=== PATIENT | female | born 2000 | race Two or more races ===

== ENCOUNTER → 2023-07-29 | Outpatient (CLI) | payer SELFPAY ==
[2023-07-29 14:17] LABS: HEMATOCRIT 31.5 % (36.0-47.0); HEMOGLOBIN 9.2 g/dl (12.0-15.5); MEAN CORPUSCULAR HEMOGLOBIN 22.4 pg (27.0-33.0); MEAN CORPUSCULAR HGB CONC 29.2 g/dl (32.0-36.5); MEAN CORPUSCULAR VOLUME 76.6 fl (80.0-96.0); PLATELET COUNT, AUTOMATED 117 10^3/uL (150-450); RED BLOOD COUNT 4.11 10^6/uL (4.00-5.40); WHITE BLOOD COUNT 6.4 10^3/uL (4.0-10.0)
[2023-07-29 14:25] LABS: GLUCOSE CHALLENGE TEST 1 HOUR 104 MG/DL (LESS THAN 140)
[2023-07-29 14:55] LABS: HIV 1&2 SCREEN NEGATIVE (NEGATIVE)
[2023-07-29 15:03] LABS: HEPATITIS C VIRUS ABY INDEX 0.04 INDEX (<0.8)
[2023-07-29 15:57] LABS: GC DNA AMPLIFICATION NEGATIVE (NEGATIVE)
== END ==
LOC: M PLALAB 08:13
PROVIDERS: ATTEND Advanced Practice Midwife
DX: Z34.83 Encounter for supervision of other normal pregnancy, third trimester (principal); Z3A.00 Weeks of gestation of pregnancy not specified

== ENCOUNTER → 2023-07-29 | Outpatient (CLI) | payer SELFPAY | LOC: M WHC 07:34 | PROVIDERS: ATTEND Advanced Practice Midwife | DX: Z34.83 Encounter for supervision of other normal pregnancy, third trimester (principal) ==

== ENCOUNTER 2023-08-13 06:40 | Inpatient (IN) | payer MEDICAID, SELFPAY ==
[2023-08-13] VITALS (8 sets, daily range): BP systolic 114–139; BP diastolic 73–87; O2SAT 100
[~2023-08-13] VITALS: Ht 154.9 cm; Wt 61.0 kg
[2023-08-13] MEDS ORDERED: OXYTOCIN 30UNITS IN 0.9% NaCl 500ML IV BAG As Ordered ONE (06:51)
[2023-08-13 07:03] LABS: CORD GAS ABE V -6.2; CORD GAS HCO3 V 23.3 MMOL/L; CORD GAS O2 SAT V 21.4 %; CORD GAS PCO2 V 62.9 mmHg; CORD GAS PH V 7.187 UNITS; CORD GAS PO2 V 12.8 mmHg; CORD GAS SBC V 17.7 MMOL/L; CORD GAS TCO2 V 25.3 MMOL/L
[2023-08-13 07:06] LABS: CORD GAS ABE A -9.7; CORD GAS HCO3 A 20.2 MMOL/L; CORD GAS O2 SAT A 56.6 %; CORD GAS PCO2 A 60.4 mmHg; CORD GAS PH A 7.143 UNITS; CORD GAS PO2 A 26.1 mmHg; CORD GAS TCO2 A 22.1 MMOL/L
[2023-08-13] MEDS ORDERED: OXYTOCIN DRIP 30 UNITS in IV 1 EA IV PRN ×4 (07:20)
[2023-08-13] MEDS ORDERED: ACETAMINOPHEN TAB 650MG DOSE (2X325MG) PO PRN (07:35)
[2023-08-13] MEDS ORDERED: IBUPROFEN 600MG TAB PO PRN (07:35)
[2023-08-13] MEDS ORDERED: METHYLERGONOVINE MALEATE 0.2 MG TAB PO PRN (07:35)
[2023-08-13] MEDS ORDERED: DOCUSATE SODIUM 100MG CAPSULE PO PRN (07:35)
[2023-08-13] MEDS ORDERED: RHOGAM 300MCG (1500IU) INJ IM SCH (07:35)
[2023-08-13] MEDS ORDERED: IBUPROFEN 800 MG TAB PO PRN (07:35)
[2023-08-13] MEDS ORDERED: ACETAMINOPHEN 500 MG TAB PO PRN (07:35)
[2023-08-13] MEDS ORDERED: DIBUCAINE 1% OINTMENT 30GM TOP PRN (07:35)
[2023-08-13] MEDS ORDERED: OXYTOCIN DRIP 30 UNITS in IV 1 EA IV SCH (08:00)
[2023-08-13 08:06] LABS: HEMATOCRIT 28.8 % (36.0-47.0); HEMOGLOBIN 8.3 g/dl (12.0-15.5); MEAN CORPUSCULAR HEMOGLOBIN 21.4 pg (27.0-33.0); MEAN CORPUSCULAR HGB CONC 28.8 g/dl (32.0-36.5); MEAN CORPUSCULAR VOLUME 74.4 fl (80.0-96.0); PLATELET COUNT, AUTOMATED 115 10^3/uL (150-450); RED BLOOD COUNT 3.87 10^6/uL (4.00-5.40); WHITE BLOOD COUNT 10.1 10^3/uL (4.0-10.0)
[2023-08-13 09:46] LABS: AMPHETAMINES URINE REFLEX NEGATIVE (NEGATIVE); BARBITURATES URINE REFLEX NEGATIVE (NEGATIVE); BENZODIAZEPINES URINE REFLEX NEGATIVE (NEGATIVE); CANNABINOIDS URINE REFLEX NEGATIVE (NEGATIVE); COCAINE METABOLITE URINE REFLE NEGATIVE (NEGATIVE); METHADONE URINE REFLEX NEGATIVE (NEGATIVE); OPIATES URINE REFLEX NEGATIVE (NEGATIVE); PHENCYCLIDINE URINE REFLEX NEGATIVE (NEGATIVE)
[2023-08-13] MEDS: PRENATAL VITAMINS CHEWABLE TABLET PO SCH (10:04)
[2023-08-13] MEDS: METHYLERGONOVINE MALEATE 0.2 MG TAB PO SCH ×4 (12:08→23:28)
[2023-08-14] MEDS: METHYLERGONOVINE MALEATE 0.2 MG TAB PO SCH (03:35)
[2023-08-14 06:00] VITALS: BP 113/65; O2SAT 98
[2023-08-14] MEDS: PRENATAL VITAMINS CHEWABLE TABLET PO SCH (08:38)
[2023-08-14] MEDS ORDERED: medroxyPROGESTERone ACET IM SUSP 150 MG/ML VIAL IM ONE (14:10)
[2023-08-15] MEDS ORDERED: MEASLES,MUMPS,RUBELLA VACCINE INJ (MMR-II) SC.IMMUN ONE (09:00)
== END 2023-08-14 15:00 | disposition home or self-care (01) | DRG 560 ==
LOC: M LDI 06:40 → M OBS 09:25
PROVIDERS: ADMIT Advanced Practice Midwife; ATTEND Advanced Practice Midwife
PROC: 10E0XZZ Delivery of Products of Conception, External Approach (ICD-10-PCS; principal; 2023-08-13)
DX: O45.8X3 Other premature separation of placenta, third trimester (principal); O60.14X0 Preterm labor third trimester with preterm delivery third trimester, not applicable or unspecified; Z37.0 Single live birth; Z3A.36 36 weeks gestation of pregnancy; O09.30 Supervision of pregnancy with insufficient antenatal care, unspecified trimester

== ENCOUNTER 2024-03-10 16:06 | Emergency (ER) | payer MEDICAID, OTHER ==
[~2024-03-10] VITALS: Ht 154.9 cm; Wt 60.2 kg
[2024-03-10] MEDS ORDERED: FERR325T82 PO (16:20)
[2024-03-10 19:00] VITALS: TEMP 97.8; O2SAT 100
[2024-03-10 19:01] VITALS: BP 115/75
[2024-03-10] MEDS ORDERED: OMEP-173 PO (19:21)
== END 2024-03-10 19:28 | disposition home or self-care (01) ==
LOC: M ED 16:06
DX: K29.00 Acute gastritis without bleeding (principal); D50.9 Iron deficiency anemia, unspecified; Z79.899 Other long term (current) drug therapy; Z79.52 Long term (current) use of systemic steroids

== ENCOUNTER → 2025-09-25 | Outpatient (REF) | payer MEDICAID, OTHER ==
[~2025-09-25] MED LIST: FERR325T82 PO; OMEP-173 PO
== END ==
LOC: M SFHCWAGY 13:13
PROVIDERS: ATTEND Advanced Practice Midwife
DX: Z12.4 Encounter for screening for malignant neoplasm of cervix (principal)